=== PATIENT | female | born 1980 | race African-American/Black ===

== ENCOUNTER 2019-09-21 12:13 | Emergency (ER) | payer SELFPAY ==
[~2019-09-21] VITALS: Ht 170.2 cm; Wt 64.0 kg
[2019-09-21 12:31] VITALS: BP 142/88
== END 2019-09-21 12:33 | disposition home or self-care (01) ==
LOC: ER 12:13
DX: Z00.00 Encounter for general adult medical examination without abnormal findings (principal); R06.03 Acute respiratory distress; R53.1 Weakness
CPT/HCPCS: 99283

== ENCOUNTER 2019-09-22 00:52 | Emergency (ER) | payer SELFPAY ==
[~2019-09-22] VITALS: Ht 167.6 cm; Wt 59.0 kg
[2019-09-22 02:47] VITALS: BP 126/83
[2019-09-22] MEDS ORDERED: AZITHROMYCIN 500 MG TABLET PO ONE (03:00)
[2019-09-22] MEDS ORDERED: CEFTRIAXONE SODIUM 250 MG/VIAL IM ONE (03:00)
== END 2019-09-22 03:42 | disposition left against medical advice (07) ==
LOC: ER 00:55
DX: Z11.3 Encounter for screening for infections with a predominantly sexual mode of transmission (principal)
CPT/HCPCS: 99281

== ENCOUNTER 2019-09-24 01:22 | Emergency (ER) | payer SELFPAY ==
[~2019-09-24] VITALS: Ht 167.6 cm; Wt 59.0 kg
[2019-09-24 05:46] VITALS: BP 101/70
== END 2019-09-24 05:47 | disposition home or self-care (01) ==
LOC: ER 01:25
DX: J40 Bronchitis, not specified as acute or chronic (principal)
CPT/HCPCS: 81025; 99283

== ENCOUNTER 2019-09-25 08:35 | Emergency (ER) | payer SELFPAY ==
[~2019-09-25] VITALS: Ht 165.1 cm; Wt 50.0 kg
[2019-09-25 09:46] VITALS: BP 112/70
== END 2019-09-25 09:47 | disposition home or self-care (01) ==
LOC: ER 09:29
DX: Z20.828 Contact with and (suspected) exposure to other viral communicable diseases (principal); R05 Cough; K64.4 Residual hemorrhoidal skin tags; R03.0 Elevated blood-pressure reading, without diagnosis of hypertension
CPT/HCPCS: 99283; U0003

== ENCOUNTER 2019-09-26 06:27 | Emergency (ER) | payer SELFPAY ==
[~2019-09-26] VITALS: Ht 167.6 cm; Wt 61.0 kg
[2019-09-26] MEDS ORDERED: SODIUM CHLORIDE 0.9% 1,000 ML IV ONE (06:53)
[2019-09-26] MEDS ORDERED: FAMOTIDINE 20MG/2ML VIAL IV ONE (07:00)
[2019-09-26 07:23] LABS: BASOPHILS % 0.7 % (0.0-2.0); EOSINOPHILS % 0.7 % (0.0-5.0); HEMATOCRIT. 37.9 % (36.0-48.0); MEAN CORPUSCULAR HEMOGLOBIN 32.7 pg (28.0-32.0); MEAN CORPUSCULAR VOLUME 95.4 fL (81.0-99.0); MEAN PLATELET VOLUME 8.2 fl (7.4-10.4); NEUTROPHILS % 59.6 % (40.0-76.0); PLATELET 323 x1000/uL (130-400); RED BLOOD CELL COUNT 3.97 mill/uL (4.2-5.4)
[2019-09-26 07:29] LABS: CHLORIDE 102 mEq/L (98-107)
[2019-09-26 07:33] LABS: ETHANOL BLOOD < 10 mg/dL
[2019-09-26 07:37] LABS: CLARITY URINE CLEAR (CLEAR); COLOR URINE YELLOW (YELLOW); KETONES URINE 1+ (NEGATIVE); LEUKOCYTE ESTERASE URINE TRACE (NEGATIVE); NITRITE URINE NEGATIVE (NEGATIVE); OCCULT BLOOD URINE NEGATIVE (NEGATIVE); PH URINE 5.5 (4.5-8.0); PROTEIN URINE NEGATIVE (NEGATIVE); SPECIFIC GRAVITY URINE 1.029 (1.005-1.030)
[2019-09-26 07:39] LABS: HCG SCREEN NEGATIVE
[2019-09-26 08:02] LABS: METHADONE URINE SCREEN NEGATIVE (NEGATIVE); OPIATES URINE SCREEN NEGATIVE (NEGATIVE)
[2019-09-26 08:03] LABS: *AMPHETAMINES SCREEN URINE NEGATIVE (NEGATIVE); *BARBITURATES SCREEN URINE NEGATIVE (NEGATIVE); *BENZODIAZEPINES SCREEN URINE NEGATIVE (NEGATIVE); *COCAINE SCREEN URINE NEGATIVE (NEGATIVE); PHENCYCLIDINE URINE SCREEN NEGATIVE (NEGATIVE)
[2019-09-26 08:10] LABS: CANNABINOID URINE SCREEN PRESUMTIVE POSITIVE (NEGATIVE)
[2019-09-26 08:21] VITALS: BP 119/76
== END 2019-09-26 08:24 | disposition home or self-care (01) ==
LOC: ER 06:27
DX: R10.13 Epigastric pain (principal); N39.0 Urinary tract infection, site not specified; Z88.0 Allergy status to penicillin; Z88.6 Allergy status to analgesic agent; Z88.8 Allergy status to other drugs, medicaments and biological substances; Z88.4 Allergy status to anesthetic agent; Z79.899 Other long term (current) drug therapy
CPT/HCPCS: 36415; 71045; 80053; 80305; 80320; 81003; 83690; 83735; 84484; 84703; 85025; 93005; 96374; 99285; J3490; J7030; G0480

== ENCOUNTER 2019-09-29 12:08 | Emergency (ER) | payer OTHER ==
[~2019-09-29] VITALS: Ht 167.6 cm; Wt 55.0 kg
[2019-09-29 12:17] VITALS: BP 101/64
== END 2019-09-29 15:39 | disposition left against medical advice (07) ==
LOC: ER 12:08
DX: Z53.21 Procedure and treatment not carried out due to patient leaving prior to being seen by health care provider (principal)

== ENCOUNTER 2019-09-30 09:31 | Emergency (ER) | payer OTHER ==
[~2019-09-30] VITALS: Ht 172.7 cm; Wt 46.0 kg
[2019-09-30 10:00] VITALS: BP 117/78
== END 2019-09-30 11:06 | disposition home or self-care (01) ==
LOC: ER 09:31
DX: R63.1 Polydipsia (principal)
CPT/HCPCS: 99281

== ENCOUNTER 2019-10-01 13:55 | Emergency (ER) | payer OTHER ==
[2019-10-01 14:34] VITALS: BP 134/87
[2019-10-01 18:45] LABS: CLARITY URINE CLEAR (CLEAR); COLOR URINE DARK YELLOW (YELLOW); KETONES URINE 1+ (NEGATIVE); LEUKOCYTE ESTERASE URINE TRACE (NEGATIVE); NITRITE URINE NEGATIVE (NEGATIVE); OCCULT BLOOD URINE NEGATIVE (NEGATIVE); PH URINE 5.5 (4.5-8.0); PROTEIN URINE 1+ (NEGATIVE); SPECIFIC GRAVITY URINE 1.034 (1.005-1.030)
[2019-10-01 19:01] LABS: *AMPHETAMINES SCREEN URINE NEGATIVE (NEGATIVE); *BARBITURATES SCREEN URINE NEGATIVE (NEGATIVE); *BENZODIAZEPINES SCREEN URINE NEGATIVE (NEGATIVE); *COCAINE SCREEN URINE NEGATIVE (NEGATIVE); METHADONE URINE SCREEN NEGATIVE (NEGATIVE); OPIATES URINE SCREEN NEGATIVE (NEGATIVE)
[2019-10-01 19:02] LABS: PHENCYCLIDINE URINE SCREEN NEGATIVE (NEGATIVE)
[2019-10-01 19:19] LABS: CANNABINOID URINE SCREEN PRESUMTIVE POSITIVE (NEGATIVE)
[2019-10-02] MEDS ORDERED: AZIT500T8 PO (12:26)
== END 2019-10-01 20:02 | disposition home or self-care (01) ==
LOC: ER 13:55
DX: N30.00 Acute cystitis without hematuria (principal); J02.9 Acute pharyngitis, unspecified; R00.2 Palpitations; R51 Headache
CPT/HCPCS: 71045; 80305; 81003; 81025; 87070; 87430; 93005; 99285

== ENCOUNTER 2019-10-02 12:13 | Emergency (ER) | payer OTHER ==
[~2019-10-02] VITALS: Ht 170.2 cm; Wt 55.0 kg
[2019-10-02] MEDS ORDERED: AZIT500T8 PO (12:26)
[2019-10-02 13:45] VITALS: BP 126/82
== END 2019-10-02 14:05 | disposition home or self-care (01) ==
LOC: ER 12:13
DX: J06.9 Acute upper respiratory infection, unspecified (principal); Z87.440 Personal history of urinary (tract) infections
CPT/HCPCS: 99282

== ENCOUNTER 2019-10-04 20:20 | Emergency (ER) | payer OTHER ==
[~2019-10-04] VITALS: Ht 170.2 cm; Wt 57.0 kg
[~2019-10-04 20:20] MED LIST: AZIT500T8 PO
[2019-10-04 20:24] VITALS: BP 122/86
[2019-10-04] MEDS ORDERED: AZITHROMYCIN 500 MG TABLET PO ONE (22:00)
[2019-10-04] MEDS ORDERED: METRONIDAZOLE 500MG TABLET PO ONE (22:00)
== END 2019-10-04 23:18 | disposition home or self-care (01) ==
LOC: ER 20:20
DX: Z20.2 Contact with and (suspected) exposure to infections with a predominantly sexual mode of transmission (principal)
CPT/HCPCS: 81025; 99283

== ENCOUNTER 2019-10-06 11:06 | Emergency (ER) | payer OTHER ==
[~2019-10-06] VITALS: Ht 165.1 cm; Wt 55.0 kg
[2019-10-06 11:32] VITALS: BP 120/82
== END 2019-10-06 12:38 | disposition home or self-care (01) ==
LOC: ER 11:06
DX: B85.1 Pediculosis due to Pediculus humanus corporis (principal); Z59.0 Homelessness
CPT/HCPCS: 99282

== ENCOUNTER 2019-10-11 18:00 | Emergency (ER) | payer SELFPAY ==
[~2019-10-11] VITALS: Ht 170.2 cm; Wt 58.0 kg
[2019-10-11 20:19] LABS: CLARITY URINE CLEAR (CLEAR); COLOR URINE YELLOW (YELLOW); KETONES URINE NEGATIVE (NEGATIVE); LEUKOCYTE ESTERASE URINE NEGATIVE (NEGATIVE); NITRITE URINE NEGATIVE (NEGATIVE); OCCULT BLOOD URINE NEGATIVE (NEGATIVE); PH URINE 7.5 (4.5-8.0); PROTEIN URINE NEGATIVE (NEGATIVE); SPECIFIC GRAVITY URINE 1.006 (1.005-1.030); UROBILINOGEN URINE 0.2 E.U./dL (0.2-1.0)
[2019-10-11 21:26] LABS: BASOPHILS % 0.6 % (0.0-2.0); EOSINOPHILS % 1.1 % (0.0-5.0); HEMOGLOBIN. 11.8 g/dL (12.0-16.0); LYMPHOCYTES % 47.2 % (20.0-50.0); MEAN CORPUSCULAR HEMOGLOBIN 32.7 pg (28.0-32.0); MEAN CORPUSCULAR VOLUME 97.1 fL (81.0-99.0); MEAN PLATELET VOLUME 8.7 fl (7.4-10.4); MONOCYTES % 7.2 % (2.0-8.0); NEUTROPHILS % 43.9 % (40.0-76.0); PLATELET 272 x1000/uL (130-400); RED BLOOD CELL COUNT 3.61 mill/uL (4.2-5.4); RED CELL DISTRIBUTION WIDTH 14.8 % (11.6-14.6)
[2019-10-11 21:31] LABS: CHLORIDE 104 mEq/L (98-107)
[2019-10-12 17:30] VITALS: BP 110/58
== END 2019-10-13 02:51 | disposition home or self-care (01) ==
LOC: ER 18:20
DX: R07.89 Other chest pain (principal); Z20.828 Contact with and (suspected) exposure to other viral communicable diseases; Z88.0 Allergy status to penicillin; Z88.6 Allergy status to analgesic agent; Z88.8 Allergy status to other drugs, medicaments and biological substances; Z88.4 Allergy status to anesthetic agent; Z79.899 Other long term (current) drug therapy; Z59.0 Homelessness
CPT/HCPCS: 36415; 71045; 80053; 81003; 81025; 85025; 99285; C9803; U0003

== ENCOUNTER 2019-10-13 03:29 | Emergency (ER) | payer SELFPAY ==
[~2019-10-13] VITALS: Ht 167.6 cm; Wt 58.6 kg
[2019-10-13 03:51] VITALS: BP 112/52
[2019-10-13 07:01] LABS: CLARITY URINE CLEAR (CLEAR); COLOR URINE YELLOW (YELLOW); KETONES URINE NEGATIVE (NEGATIVE); LEUKOCYTE ESTERASE URINE 1+ (NEGATIVE); NITRITE URINE NEGATIVE (NEGATIVE); OCCULT BLOOD URINE NEGATIVE (NEGATIVE); PROTEIN URINE NEGATIVE (NEGATIVE); SPECIFIC GRAVITY URINE 1.022 (1.005-1.030); UROBILINOGEN URINE 0.2 E.U./dL (0.2-1.0)
== END 2019-10-13 07:30 | disposition left against medical advice (07) ==
LOC: ER 03:36
DX: N30.00 Acute cystitis without hematuria (principal); R03.0 Elevated blood-pressure reading, without diagnosis of hypertension
CPT/HCPCS: 81003; 81025; 99283

== ENCOUNTER 2019-11-02 19:40 | Emergency (ER) | payer SELFPAY ==
[~2019-11-02] VITALS: Ht 167.6 cm; Wt 59.0 kg
[2019-11-02] MEDS ORDERED: MAGNESIUM/ALUMINUM HYDROXIDE/SIMETHICONE 30ML UDC PO ONE (21:45)
[2019-11-02] MEDS ORDERED: ASPIRIN 81MG TABLET PO ONE (21:45)
[2019-11-02 22:36] LABS: HEMATOCRIT. 36.1 % (36.0-48.0); MEAN CORPUSCULAR HEMOGLOBIN 31.8 pg (28.0-32.0); MEAN CORPUSCULAR VOLUME 95.8 fL (81.0-99.0); MEAN PLATELET VOLUME 8.4 fl (7.4-10.4); PLATELET 333 x1000/uL (130-400); RED BLOOD CELL COUNT 3.77 mill/uL (4.2-5.4)
[2019-11-02 22:41] LABS: CHLORIDE 111 mEq/L (98-107)
[2019-11-02 23:59] LABS: ATYPICAL LYMPHOCYTES 1; PLATELET ESTIMATE NORMAL
[2019-11-03 00:25] LABS: *AMPHETAMINES SCREEN URINE NEGATIVE (NEGATIVE); OPIATES URINE SCREEN NEGATIVE (NEGATIVE); PHENCYCLIDINE URINE SCREEN NEGATIVE (NEGATIVE)
[2019-11-03 00:27] LABS: *BARBITURATES SCREEN URINE NEGATIVE (NEGATIVE); *BENZODIAZEPINES SCREEN URINE NEGATIVE (NEGATIVE); *COCAINE SCREEN URINE NEGATIVE (NEGATIVE); METHADONE URINE SCREEN NEGATIVE (NEGATIVE)
[2019-11-03 00:34] LABS: CANNABINOID URINE SCREEN PRESUMTIVE POSITIVE (NEGATIVE)
[2019-11-03 04:20] VITALS: BP 114/70
== END 2019-11-03 04:21 | disposition home or self-care (01) ==
LOC: ER 19:40
DX: R07.89 Other chest pain (principal); N39.0 Urinary tract infection, site not specified; Z98.890 Other specified postprocedural states; Z88.6 Allergy status to analgesic agent; Z88.0 Allergy status to penicillin
CPT/HCPCS: 36415; 71045; 80053; 80305; 81025; 83880; 84484; 85025; 93005; 99285

== ENCOUNTER 2019-11-19 14:56 | Emergency (ER) | payer OTHER ==
[~2019-11-19] VITALS: Ht 162.6 cm; Wt 54.0 kg
[2019-11-19 17:05] LABS: CLARITY URINE CLEAR (CLEAR); COLOR URINE YELLOW (YELLOW); KETONES URINE TRACE (NEGATIVE); LEUKOCYTE ESTERASE URINE NEGATIVE (NEGATIVE); NITRITE URINE NEGATIVE (NEGATIVE); OCCULT BLOOD URINE NEGATIVE (NEGATIVE); PH URINE 5.5 (4.5-8.0); PROTEIN URINE TRACE (NEGATIVE); SPECIFIC GRAVITY URINE 1.032 (1.005-1.030)
[2019-11-19 17:10] VITALS: BP 116/82
[2019-11-19] MEDS ORDERED: CEFTRIAXONE SODIUM 250 MG/VIAL IM ONE (17:30)
[2019-11-19] MEDS ORDERED: AZITHROMYCIN 500 MG TABLET PO ONE (17:30)
[2019-11-19 19:51] LABS: *AMPHETAMINES SCREEN URINE NEGATIVE (NEGATIVE); *BARBITURATES SCREEN URINE NEGATIVE (NEGATIVE); *BENZODIAZEPINES SCREEN URINE NEGATIVE (NEGATIVE); *COCAINE SCREEN URINE NEGATIVE (NEGATIVE)
[2019-11-19 19:52] LABS: METHADONE URINE SCREEN NEGATIVE (NEGATIVE); OPIATES URINE SCREEN NEGATIVE (NEGATIVE); PHENCYCLIDINE URINE SCREEN NEGATIVE (NEGATIVE)
[2019-11-19 19:55] LABS: CANNABINOID URINE SCREEN PRESUMTIVE POSITIVE (NEGATIVE)
[2019-11-22 06:07] LABS: NEISSERIA GONORRHOEAE NAA Negative (Negative)
== END 2019-11-19 19:36 | disposition home or self-care (01) ==
LOC: ER 14:56
DX: Z20.2 Contact with and (suspected) exposure to infections with a predominantly sexual mode of transmission (principal); Z20.818 Contact with and (suspected) exposure to other bacterial communicable diseases; Z72.51 High risk heterosexual behavior; F14.10 Cocaine abuse, uncomplicated
CPT/HCPCS: 80305; 81003; 81025; 87491; 87591; 99283; C9803; J0696; U0003

== ENCOUNTER 2019-11-23 14:06 | Emergency (ER) | payer OTHER ==
[~2019-11-23] VITALS: Ht 170.2 cm; Wt 76.0 kg
[2019-11-23 14:17] VITALS: BP 118/73
== END 2019-11-23 16:23 | disposition left against medical advice (07) ==
LOC: ER 14:06
DX: N89.8 Other specified noninflammatory disorders of vagina (principal); Z53.21 Procedure and treatment not carried out due to patient leaving prior to being seen by health care provider

== ENCOUNTER 2019-11-23 21:45 | Emergency (ER) | payer OTHER ==
[~2019-11-23] VITALS: Ht 167.6 cm; Wt 61.0 kg
[2019-11-23 21:54] VITALS: BP 128/78
== END 2019-11-23 22:45 | disposition left against medical advice (07) ==
LOC: ER 21:45
DX: N89.8 Other specified noninflammatory disorders of vagina (principal); Z88.0 Allergy status to penicillin; Z88.6 Allergy status to analgesic agent; Z88.8 Allergy status to other drugs, medicaments and biological substances; Z88.1 Allergy status to other antibiotic agents; Z98.890 Other specified postprocedural states
CPT/HCPCS: 99281

== ENCOUNTER 2020-03-14 09:06 | Emergency (ER) | payer SELFPAY ==
[~2020-03-14] VITALS: Ht 167.6 cm; Wt 62.0 kg
[2020-03-14 09:12] VITALS: BP 138/78
== END 2020-03-14 09:30 | disposition home or self-care (01) ==
LOC: ER 09:19
DX: B85.0 Pediculosis due to Pediculus humanus capitis (principal); B85.1 Pediculosis due to Pediculus humanus corporis; Z88.0 Allergy status to penicillin; Z88.6 Allergy status to analgesic agent; Z88.4 Allergy status to anesthetic agent
CPT/HCPCS: 99283

== ENCOUNTER 2020-03-15 06:18 | Emergency (ER) | payer OTHER ==
[~2020-03-15] VITALS: Ht 170.2 cm; Wt 61.0 kg
[2020-03-15 08:09] VITALS: BP 126/61
== END 2020-03-15 08:10 | disposition home or self-care (01) ==
LOC: ER 06:18
DX: B85.1 Pediculosis due to Pediculus humanus corporis (principal); R30.0 Dysuria; R03.0 Elevated blood-pressure reading, without diagnosis of hypertension
CPT/HCPCS: 99282

== ENCOUNTER 2020-03-18 17:51 | Emergency (ER) | payer OTHER ==
[~2020-03-18] VITALS: Ht 170.2 cm; Wt 58.9 kg
[2020-03-18 19:23] VITALS: BP 120/78
== END 2020-03-18 19:23 | disposition home or self-care (01) ==
LOC: ER 17:51
DX: Z20.828 Contact with and (suspected) exposure to other viral communicable diseases (principal)
CPT/HCPCS: 81025; 87635; 99283; C9803

== ENCOUNTER 2020-03-29 12:37 | Emergency (ER) | payer OTHER ==
[~2020-03-29] VITALS: Ht 170.2 cm; Wt 66.0 kg
[2020-03-29 12:44] VITALS: BP 94/58
[2020-03-29 14:16] LABS: CLARITY URINE CLEAR (CLEAR); COLOR URINE YELLOW (YELLOW); KETONES URINE NEGATIVE (NEGATIVE); LEUKOCYTE ESTERASE URINE NEGATIVE (NEGATIVE); NITRITE URINE NEGATIVE (NEGATIVE); OCCULT BLOOD URINE NEGATIVE (NEGATIVE); PROTEIN URINE NEGATIVE (NEGATIVE); SPECIFIC GRAVITY URINE 1.015 (1.005-1.030)
== END 2020-03-29 15:00 | disposition home or self-care (01) ==
LOC: ER 12:45
DX: N89.8 Other specified noninflammatory disorders of vagina (principal); R30.0 Dysuria; L29.9 Pruritus, unspecified; Z88.0 Allergy status to penicillin; Z88.6 Allergy status to analgesic agent; Z88.8 Allergy status to other drugs, medicaments and biological substances
CPT/HCPCS: 81003; 81025; 93005; 99284

== ENCOUNTER 2020-03-31 12:50 | Emergency (ER) | payer MEDICAID, OTHER ==
[~2020-03-31] VITALS: Ht 170.2 cm; Wt 60.0 kg
[2020-03-31 13:17] VITALS: BP 124/90
[2020-03-31 23:45] LABS: CLARITY URINE CLEAR (CLEAR); COLOR URINE YELLOW (YELLOW); KETONES URINE 1+ (NEGATIVE); LEUKOCYTE ESTERASE URINE 1+ (NEGATIVE); NITRITE URINE NEGATIVE (NEGATIVE); OCCULT BLOOD URINE NEGATIVE (NEGATIVE); PROTEIN URINE NEGATIVE (NEGATIVE); SPECIFIC GRAVITY URINE 1.024 (1.005-1.030)
[2020-04-01] MEDS ORDERED: CEFTRIAXONE SODIUM 250 MG/VIAL IM ONE (01:15)
[2020-04-01] MEDS ORDERED: AZITHROMYCIN 500 MG TABLET PO ONE (01:15)
[2020-04-07 05:09] LABS: NEISSERIA GONORRHOEAE NAA Negative (Negative)
== END 2020-04-01 02:20 | disposition home or self-care (01) ==
LOC: ER 12:50
DX: N89.8 Other specified noninflammatory disorders of vagina (principal); J02.9 Acute pharyngitis, unspecified
CPT/HCPCS: 71045; 81003; 81025; 87210; 87491; 87591; 96372; 99284; J0696

== ENCOUNTER 2020-04-02 06:30 | Emergency (ER) | payer MEDICAID ==
[~2020-04-02] VITALS: Ht 170.2 cm; Wt 58.0 kg
[2020-04-02 06:38] VITALS: BP 116/65
== END 2020-04-02 08:27 | disposition home or self-care (01) ==
LOC: ER 06:30
DX: B86 Scabies (principal); F17.200 Nicotine dependence, unspecified, uncomplicated; Z76.0 Encounter for issue of repeat prescription; Z88.0 Allergy status to penicillin; Z88.6 Allergy status to analgesic agent; Z88.8 Allergy status to other drugs, medicaments and biological substances
CPT/HCPCS: 99282

== ENCOUNTER 2020-04-02 17:12 | Emergency (ER) | payer MEDICAID ==
[~2020-04-02] VITALS: Ht 170.2 cm; Wt 58.0 kg
[2020-04-02 20:00] LABS: CHLORIDE 105 mEq/L (98-107)
[2020-04-02 20:09] LABS: BASOPHILS % 0.5 % (0.0-2.0); EOSINOPHILS % 1.1 % (0.0-5.0); HEMATOCRIT. 33.3 % (36.0-48.0); HEMOGLOBIN. 11.8 g/dL (12.0-16.0); LYMPHOCYTES % 53.2 % (20.0-50.0); MEAN CORPUSCULAR HEMOGLOBIN 34.6 pg (28.0-32.0); MEAN CORPUSCULAR VOLUME 97.6 fL (81.0-99.0); MEAN PLATELET VOLUME 8.4 fl (7.4-10.4); MONOCYTES % 4.9 % (2.0-8.0); NEUTROPHILS % 40.3 % (40.0-76.0); PLATELET 241 x1000/uL (130-400); RED BLOOD CELL COUNT 3.42 mill/uL (4.2-5.4); RED CELL DISTRIBUTION WIDTH 14.5 % (11.6-14.6)
[2020-04-02 20:50] LABS: CLARITY URINE CLEAR (CLEAR); COLOR URINE YELLOW (YELLOW); KETONES URINE TRACE (NEGATIVE); LEUKOCYTE ESTERASE URINE NEGATIVE (NEGATIVE); NITRITE URINE NEGATIVE (NEGATIVE); OCCULT BLOOD URINE NEGATIVE (NEGATIVE); PROTEIN URINE NEGATIVE (NEGATIVE); SPECIFIC GRAVITY URINE 1.029 (1.005-1.030); UROBILINOGEN URINE 0.2 E.U./dL (0.2-1.0)
[2020-04-02 22:04] VITALS: BP 112/73
== END 2020-04-02 22:38 | disposition home or self-care (01) ==
LOC: ER 17:20
DX: R10.10 Upper abdominal pain, unspecified (principal); Z88.0 Allergy status to penicillin; Z88.8 Allergy status to other drugs, medicaments and biological substances; Z88.6 Allergy status to analgesic agent
CPT/HCPCS: 36415; 80053; 81003; 81025; 84484; 85025; 99283

== ENCOUNTER 2020-04-03 03:42 | Emergency (ER) | payer MEDICAID ==
[~2020-04-03] VITALS: Ht 170.2 cm; Wt 57.0 kg
[2020-04-03 05:14] VITALS: BP 127/74
[2020-04-03 06:09] LABS: HEPATITIS B SURFACE ANTIGEN NEGATIVE
[2020-04-03 06:39] LABS: HEPATITIS A AB IGM NEGATIVE (NEGATIVE)
[2020-04-06 04:07] LABS: HIV SCREEN 4G Non Reactive (Non Reactive)
== END 2020-04-03 05:18 | disposition home or self-care (01) ==
LOC: ER 03:52
DX: U07.1 COVID-19 (principal); H53.8 Other visual disturbances; Z59.0 Homelessness
CPT/HCPCS: 36415; 86705; 86709; 86803; 87340; 87389; 99283; C9803; U0003

== ENCOUNTER 2020-04-04 11:42 | Emergency (ER) | payer MEDICAID ==
[~2020-04-04] VITALS: Ht 165.1 cm; Wt 65.0 kg
[2020-04-04 12:54] VITALS: BP 128/95
== END 2020-04-04 13:00 | disposition home or self-care (01) ==
LOC: ER 11:46
DX: J02.9 Acute pharyngitis, unspecified (principal); Z88.0 Allergy status to penicillin; Z88.6 Allergy status to analgesic agent
CPT/HCPCS: 99281

== ENCOUNTER 2020-04-05 20:00 | Emergency (ER) | payer MEDICAID ==
[~2020-04-05] VITALS: Ht 170.2 cm; Wt 61.0 kg
[2020-04-05 20:04] VITALS: BP 109/68
== END 2020-04-05 21:00 | disposition home or self-care (01) ==
LOC: ER 20:00
DX: R10.84 Generalized abdominal pain (principal); R03.0 Elevated blood-pressure reading, without diagnosis of hypertension; U07.1 COVID-19; T39.1X5A Adverse effect of 4-Aminophenol derivatives, initial encounter; Y92.89 Other specified places as the place of occurrence of the external cause
CPT/HCPCS: 99281

== ENCOUNTER 2020-04-06 11:44 | Emergency (ER) | payer MEDICAID ==
[~2020-04-06] VITALS: Ht 167.6 cm; Wt 80.0 kg
[2020-04-06 11:53] VITALS: BP 104/68
== END 2020-04-06 13:02 | disposition home or self-care (01) ==
LOC: ER 11:44
DX: U07.1 COVID-19 (principal); Z88.0 Allergy status to penicillin; Z88.6 Allergy status to analgesic agent; Z88.8 Allergy status to other drugs, medicaments and biological substances; Z79.82 Long term (current) use of aspirin; Z88.1 Allergy status to other antibiotic agents
CPT/HCPCS: 99281; 99283

== ENCOUNTER 2020-04-06 16:47 | Emergency (ER) | payer MEDICAID | END 2020-04-06 17:00 | disposition left against medical advice (07) | LOC: ER 16:47 | DX: Z53.21 Procedure and treatment not carried out due to patient leaving prior to being seen by health care provider (principal) ==

== ENCOUNTER 2020-07-22 08:04 | Emergency (ER) | payer MEDICAID ==
[~2020-07-22] VITALS: Ht 170.2 cm; Wt 64.0 kg
[2020-07-22] MEDS ORDERED: DOXYCYCLINE HYCLATE 100MG CAPSULE PO ONE (08:45)
[2020-07-22] MEDS ORDERED: CEFTRIAXONE SODIUM 250 MG/VIAL IM ONE (08:45)
[2020-07-22] MEDS ORDERED: FLUCONAZOLE 100MG TABLET PO ONE (09:00)
[2020-07-22] MEDS ORDERED: DOXY100T2 PO (09:02)
[2020-07-22 09:28] LABS: CLARITY URINE CLEAR (CLEAR); COLOR URINE YELLOW (YELLOW); KETONES URINE 1+ (NEGATIVE); LEUKOCYTE ESTERASE URINE TRACE (NEGATIVE); NITRITE URINE NEGATIVE (NEGATIVE); OCCULT BLOOD URINE NEGATIVE (NEGATIVE); PH URINE 5.5 (4.5-8.0); PROTEIN URINE NEGATIVE (NEGATIVE); SPECIFIC GRAVITY URINE 1.027 (1.005-1.030)
[2020-07-22] MEDS ORDERED: LIDOCAINE HCL 1% 20ML VIAL (Pyxis) INJ INFIL ONE (09:30)
[2020-07-22 10:00] VITALS: BP 110/80
[2020-07-25 06:07] LABS: NEISSERIA GONORRHOEAE NAA Negative (Negative)
== END 2020-07-22 10:10 | disposition home or self-care (01) ==
LOC: ER 08:04
DX: A64 Unspecified sexually transmitted disease (principal); Z88.0 Allergy status to penicillin; Z88.6 Allergy status to analgesic agent
CPT/HCPCS: 81003; 81025; 87210; 87491; 87591; 96372; 99283; J0696; J3490; Z7610

== ENCOUNTER 2021-03-18 07:52 | Emergency (ER) | payer MEDICAID ==
[~2021-03-18] VITALS: Ht 167.6 cm; Wt 63.0 kg
[~2021-03-18 07:52] MED LIST changes: +DOXY100T2 PO
[2021-03-18] MEDS ORDERED: LIDOCAINE HCL 1% 20ML VIAL (Pyxis) INJ INFIL ONE (08:30)
[2021-03-18] MEDS ORDERED: AZITHROMYCIN 500 MG TABLET PO ONE (08:30)
[2021-03-18] MEDS ORDERED: CEFTRIAXONE SODIUM 1 G/VIAL IM ONE ×2 (08:30→09:00)
[2021-03-18 08:38] LABS: CLARITY URINE CLOUDY (CLEAR); COLOR URINE YELLOW (YELLOW); KETONES URINE NEGATIVE (NEGATIVE); LEUKOCYTE ESTERASE URINE 1+ (NEGATIVE); NITRITE URINE NEGATIVE (NEGATIVE); OCCULT BLOOD URINE TRACE (NEGATIVE); PH URINE 5.5 (4.5-8.0); PROTEIN URINE TRACE (NEGATIVE); SPECIFIC GRAVITY URINE 1.027 (1.005-1.030); UROBILINOGEN URINE 0.2 E.U./dL (0.2-1.0)
[2021-03-18] MEDS ORDERED: SODIUM CHLORIDE 0.9% INJ 3ML FLUSH IVF ONE (09:00)
[2021-03-18] MEDS ORDERED: METR500T MT (09:29)
[2021-03-18] MEDS ORDERED: SULF1TAB48 MT (09:29)
[2021-03-18 09:43] VITALS: BP 122/78
[2021-03-22 04:07] LABS: NEISSERIA GONORRHOEAE NAA Negative (Negative)
== END 2021-03-18 09:45 | disposition home or self-care (01) ==
LOC: ER 07:52
DX: N39.0 Urinary tract infection, site not specified (principal); Z20.2 Contact with and (suspected) exposure to infections with a predominantly sexual mode of transmission; Z88.0 Allergy status to penicillin; Z88.6 Allergy status to analgesic agent; Z88.4 Allergy status to anesthetic agent; Z88.8 Allergy status to other drugs, medicaments and biological substances; Z79.899 Other long term (current) drug therapy
CPT/HCPCS: 81003; 87086; 87491; 87591; 96372; 99284; J0696; J3490

== ENCOUNTER 2021-03-27 13:29 | Emergency (ER) | payer MEDICAID ==
[~2021-03-27] VITALS: Ht 167.6 cm; Wt 61.4 kg
[~2021-03-27 13:29] MED LIST changes: +METR500T MT; +SULF1TAB48 MT
[2021-03-27 15:41] LABS: CLARITY URINE CLEAR (CLEAR); COLOR URINE DARK YELLOW (YELLOW); KETONES URINE 1+ (NEGATIVE); LEUKOCYTE ESTERASE URINE TRACE (NEGATIVE); NITRITE URINE NEGATIVE (NEGATIVE); OCCULT BLOOD URINE NEGATIVE (NEGATIVE); PH URINE 5.5 (4.5-8.0); PROTEIN URINE NEGATIVE (NEGATIVE); SPECIFIC GRAVITY URINE 1.019 (1.005-1.030); UROBILINOGEN URINE 0.2 E.U./dL (0.2-1.0)
[2021-03-27] MEDS ORDERED: NITR-87 MT (15:43)
[2021-03-27 15:51] VITALS: BP 133/70
== END 2021-03-27 15:50 | disposition home or self-care (01) ==
LOC: ER 13:34
DX: N39.0 Urinary tract infection, site not specified (principal); N89.8 Other specified noninflammatory disorders of vagina; Z87.01 Personal history of pneumonia (recurrent); Z98.890 Other specified postprocedural states; Z79.899 Other long term (current) drug therapy; Z88.0 Allergy status to penicillin
CPT/HCPCS: 81003; 81025; 99283

== ENCOUNTER 2021-03-28 11:21 | Emergency (ER) | payer MEDICAID ==
[~2021-03-28] VITALS: Ht 167.6 cm; Wt 59.0 kg
[~2021-03-28 11:21] MED LIST changes: +NITR-87 MT
[2021-03-28 11:58] VITALS: BP 114/67
[2021-03-28] MEDS ORDERED: TETANUS, DIPHTHERIA, PERTUSSIS VAC/PF 0.5ML (>10YR OLD) IM ONE (12:00)
== END 2021-03-28 13:50 | disposition home or self-care (01) ==
LOC: ER 11:21
DX: Z11.1 Encounter for screening for respiratory tuberculosis (principal); Z87.01 Personal history of pneumonia (recurrent); Z59.01 Sheltered homelessness; Z59.812 Housing instability, housed, homelessness in past 12 months; Z88.0 Allergy status to penicillin; Z88.6 Allergy status to analgesic agent; Z88.8 Allergy status to other drugs, medicaments and biological substances
CPT/HCPCS: 71045; 90471; 90715; 99283

== ENCOUNTER 2021-04-12 20:17 | Emergency (ER) | payer MEDICAID ==
[~2021-04-12] VITALS: Ht 167.6 cm; Wt 59.0 kg
[2021-04-12 21:37] VITALS: BP 130/96
[2021-04-12 22:46] LABS: CLARITY URINE CLEAR (CLEAR); COLOR URINE YELLOW (YELLOW); KETONES URINE TRACE (NEGATIVE); LEUKOCYTE ESTERASE URINE TRACE (NEGATIVE); NITRITE URINE NEGATIVE (NEGATIVE); OCCULT BLOOD URINE TRACE (NEGATIVE); PH URINE 5.5 (4.5-8.0); PROTEIN URINE NEGATIVE (NEGATIVE); SPECIFIC GRAVITY URINE 1.026 (1.005-1.030); UROBILINOGEN URINE 0.2 E.U./dL (0.2-1.0)
[2021-04-12] MEDS ORDERED: NITR-87 MT (23:19)
[2021-04-15 09:11] LABS: NEISSERIA GONORRHOEAE NAA Negative (Negative)
== END 2021-04-13 00:29 | disposition home or self-care (01) ==
LOC: ER 20:17
DX: N30.00 Acute cystitis without hematuria (principal); Z20.2 Contact with and (suspected) exposure to infections with a predominantly sexual mode of transmission; N89.8 Other specified noninflammatory disorders of vagina; Z98.890 Other specified postprocedural states; Z79.899 Other long term (current) drug therapy; Z88.8 Allergy status to other drugs, medicaments and biological substances; Z88.6 Allergy status to analgesic agent
CPT/HCPCS: 81003; 81025; 87491; 87591; 99283

== ENCOUNTER 2021-04-17 15:19 | Emergency (ER) | payer MEDICAID ==
[~2021-04-17] VITALS: Ht 167.6 cm; Wt 87.0 kg
[2021-04-17 15:43] VITALS: BP 126/96
== END 2021-04-17 20:34 | disposition left against medical advice (07) ==
LOC: ER 15:19
DX: Z53.21 Procedure and treatment not carried out due to patient leaving prior to being seen by health care provider (principal)

== ENCOUNTER 2021-04-20 06:05 | Emergency (ER) | payer MEDICAID ==
[~2021-04-20] VITALS: Ht 170.2 cm; Wt 62.0 kg
[2021-04-20 06:13] VITALS: BP 127/83
[2021-04-20 08:52] LABS: CLARITY URINE CLEAR (CLEAR); COLOR URINE YELLOW (YELLOW); KETONES URINE NEGATIVE (NEGATIVE); LEUKOCYTE ESTERASE URINE NEGATIVE (NEGATIVE); NITRITE URINE NEGATIVE (NEGATIVE); OCCULT BLOOD URINE NEGATIVE (NEGATIVE); PROTEIN URINE NEGATIVE (NEGATIVE); SPECIFIC GRAVITY URINE 1.024 (1.005-1.030)
[2021-04-20] MEDS ORDERED: DOXY100T28 MT (09:25)
[2021-04-20] MEDS ORDERED: CEFTRIAXONE SODIUM 500 MG/VIAL IM SCH (09:30)
[2021-04-20] MEDS ORDERED: LIDOCAINE HCL 1% 20ML VIAL (Pyxis) INJ INFIL SCH (09:30)
[2021-04-22 04:07] LABS: NEISSERIA GONORRHOEAE NAA Negative (Negative)
== END 2021-04-20 09:57 | disposition home or self-care (01) ==
LOC: ER 06:05
DX: Z20.2 Contact with and (suspected) exposure to infections with a predominantly sexual mode of transmission (principal); N89.8 Other specified noninflammatory disorders of vagina; R30.0 Dysuria
CPT/HCPCS: 81003; 81025; 87491; 87591; 96372; 99283; J0696; J3490

== ENCOUNTER 2021-04-27 02:45 | Emergency (ER) | payer MEDICAID ==
[~2021-04-27] VITALS: Ht 170.2 cm; Wt 59.0 kg
[~2021-04-27 02:45] MED LIST changes: +DOXY100T28 MT
[2021-04-27 06:47] LABS: BASOPHILS % 1.1 % (0.0-2.0); CHLORIDE 109 mEq/L (98-107); EOSINOPHILS % 0.9 % (0.0-5.0); HEMATOCRIT. 34.6 % (36.0-48.0); HEMOGLOBIN. 11.6 g/dL (12.0-16.0); LYMPHOCYTES % 42.3 % (20.0-50.0); MEAN CORPUSCULAR HEMOGLOBIN 32.5 pg (28.0-32.0); MEAN CORPUSCULAR VOLUME 96.9 fL (81.0-99.0); MONOCYTES % 8.2 % (2.0-8.0); NEUTROPHILS % 47.5 % (40.0-76.0); PLATELET 299 x1000/uL (130-400); RED BLOOD CELL COUNT 3.57 mill/uL (4.2-5.4); RED CELL DISTRIBUTION WIDTH 13.9 % (11.6-14.6)
[2021-04-27] MEDS ORDERED: TOPUD PO (08:26)
[2021-04-27 08:45] VITALS: BP 116/85
[2021-04-28] MEDS ORDERED: IMIT50 MT (22:02)
== END 2021-04-27 08:47 | disposition home or self-care (01) ==
LOC: ER 02:45
DX: R60.9 Edema, unspecified (principal); Z88.0 Allergy status to penicillin; Z88.6 Allergy status to analgesic agent; Z88.8 Allergy status to other drugs, medicaments and biological substances; Z98.890 Other specified postprocedural states; Z79.899 Other long term (current) drug therapy
CPT/HCPCS: 36415; 80053; 83880; 84484; 85025; 93005; 99284

== ENCOUNTER 2021-04-27 20:33 | Emergency (ER) | payer MEDICAID ==
[~2021-04-27] VITALS: Ht 170.2 cm; Wt 50.0 kg
[~2021-04-27 20:33] MED LIST changes: +TOPUD PO
[2021-04-27 21:00] VITALS: BP 109/74
[2021-04-28] MEDS ORDERED: IMIT50 MT (22:02)
== END 2021-04-27 23:38 | disposition home or self-care (01) ==
LOC: ER 20:33
DX: R07.89 Other chest pain (principal); Z88.0 Allergy status to penicillin; Z88.6 Allergy status to analgesic agent; Z88.8 Allergy status to other drugs, medicaments and biological substances; Z88.4 Allergy status to anesthetic agent; Z79.899 Other long term (current) drug therapy
CPT/HCPCS: 99281

== ENCOUNTER 2021-04-28 16:37 | Emergency (ER) | payer MEDICAID ==
[~2021-04-28] VITALS: Ht 167.6 cm; Wt 59.0 kg
[2021-04-28] MEDS ORDERED: HYDROCODONE/ACETAMINOPHEN 5/325MG TABLET PO ONE (21:45)
[2021-04-28] MEDS ORDERED: SUMATRIPTAN SUCCINATE 25MG TABLET PO ONE (21:45)
[2021-04-28] MEDS ORDERED: IMIT50 MT (22:02)
[2021-04-28 22:25] VITALS: BP 19/68
== END 2021-04-28 22:27 | disposition home or self-care (01) ==
LOC: ER 16:37
DX: G43.909 Migraine, unspecified, not intractable, without status migrainosus (principal); Z79.899 Other long term (current) drug therapy; Z88.0 Allergy status to penicillin
CPT/HCPCS: 71045; 99283

== ENCOUNTER 2021-05-01 12:57 | Emergency (ER) | payer MEDICAID ==
[~2021-05-01] VITALS: Ht 170.2 cm; Wt 66.0 kg
[~2021-05-01 12:57] MED LIST changes: +IMIT50 MT
[2021-05-01 13:43] VITALS: BP 119/60
== END 2021-05-01 16:37 | disposition home or self-care (01) ==
LOC: ER 12:57
DX: R10.2 Pelvic and perineal pain (principal)
CPT/HCPCS: 99281

== ENCOUNTER 2021-05-05 05:44 | Emergency (ER) | payer MEDICAID ==
[~2021-05-05] VITALS: Ht 167.6 cm; Wt 62.0 kg
[2021-05-05] MEDS ORDERED: IBUP-2028 PO (06:06)
[2021-05-05] MEDS ORDERED: IBUPROFEN 400MG TABLET PO ONE (06:15)
[2021-05-05 06:47] VITALS: BP 125/67
[2021-05-05] MEDS ORDERED: TERB30CR8 TP (08:20)
== END 2021-05-05 06:48 | disposition home or self-care (01) ==
LOC: ER 05:44
DX: H92.01 Otalgia, right ear (principal); J02.9 Acute pharyngitis, unspecified; Z88.0 Allergy status to penicillin; Z88.8 Allergy status to other drugs, medicaments and biological substances; Z88.6 Allergy status to analgesic agent
CPT/HCPCS: 99282

== ENCOUNTER 2021-05-09 00:26 | Emergency (ER) | payer MEDICAID ==
[~2021-05-09] VITALS: Ht 170.2 cm; Wt 65.0 kg
[~2021-05-09 00:26] MED LIST changes: +IBUP-2028 PO; +TERB30CR8 TP
[2021-05-09 00:36] VITALS: BP 129/87
== END 2021-05-09 01:13 | disposition left against medical advice (07) ==
LOC: ER 00:26
DX: Z53.21 Procedure and treatment not carried out due to patient leaving prior to being seen by health care provider (principal)

== ENCOUNTER 2021-05-10 17:22 | Emergency (ER) | payer MEDICAID ==
[~2021-05-10] VITALS: Ht 165.1 cm; Wt 75.0 kg
[2021-05-10 18:44] LABS: CLARITY URINE CLEAR (CLEAR); COLOR URINE YELLOW (YELLOW); KETONES URINE 2+ (NEGATIVE); LEUKOCYTE ESTERASE URINE TRACE (NEGATIVE); NITRITE URINE NEGATIVE (NEGATIVE); OCCULT BLOOD URINE NEGATIVE (NEGATIVE); PH URINE 5.5 (4.5-8.0); PROTEIN URINE NEGATIVE (NEGATIVE); UROBILINOGEN URINE 0.2 E.U./dL (0.2-1.0)
[2021-05-10 19:41] LABS: CHLORIDE 110 mEq/L (98-107)
[2021-05-10 21:35] VITALS: BP 112/72
== END 2021-05-10 21:45 | disposition home or self-care (01) ==
LOC: ER 17:22
DX: R10.10 Upper abdominal pain, unspecified (principal); Z88.0 Allergy status to penicillin; Z88.6 Allergy status to analgesic agent; Z88.8 Allergy status to other drugs, medicaments and biological substances; Z88.4 Allergy status to anesthetic agent; Z79.899 Other long term (current) drug therapy
CPT/HCPCS: 36415; 80053; 81003; 87210; 99283

== ENCOUNTER 2021-05-17 12:08 | Emergency (ER) | payer SELFPAY ==
[~2021-05-17] VITALS: Ht 167.6 cm; Wt 63.4 kg
[2021-05-17 12:13] VITALS: BP 131/84
[2021-05-17] MEDS ORDERED: HYDR453.3 TP (12:29)
[2021-05-17] MEDS ORDERED: PERM60CR4 TP (12:29)
[2021-05-17] MEDS ORDERED: CETI10TA6 PO (12:29)
== END 2021-05-17 12:55 | disposition home or self-care (01) ==
LOC: ER 12:08
DX: B86 Scabies (principal); Z88.0 Allergy status to penicillin; Z88.6 Allergy status to analgesic agent; Z88.4 Allergy status to anesthetic agent; Z88.8 Allergy status to other drugs, medicaments and biological substances; Z79.899 Other long term (current) drug therapy
CPT/HCPCS: 99283

== ENCOUNTER 2021-05-30 00:34 | Emergency (ER) | payer SELFPAY ==
[~2021-05-30] VITALS: Ht 167.6 cm; Wt 60.0 kg
[~2021-05-30 00:34] MED LIST changes: +CETI10TA6 PO; +HYDR453.3 TP; +PERM60CR4 TP
[2021-05-30 00:49] VITALS: BP 122/64
[2021-05-30] MEDS ORDERED: CEFTRIAXONE SODIUM 500 MG/VIAL IM ONE (03:00)
[2021-05-30] MEDS ORDERED: DOXYCYCLINE HYCLATE 100MG CAPSULE PO ONE (03:00)
[2021-05-30 03:18] LABS: CLARITY URINE CLEAR (CLEAR); COLOR URINE YELLOW (YELLOW); KETONES URINE TRACE (NEGATIVE); LEUKOCYTE ESTERASE URINE NEGATIVE (NEGATIVE); NITRITE URINE NEGATIVE (NEGATIVE); OCCULT BLOOD URINE NEGATIVE (NEGATIVE); PH URINE 6.5 (4.5-8.0); PROTEIN URINE 1+ (NEGATIVE); SPECIFIC GRAVITY URINE 1.031 (1.005-1.030)
[2021-05-30 03:52] LABS: HCG SCREEN NEGATIVE
[2021-05-30] MEDS ORDERED: DOXY-326 MT (04:26)
[2021-05-30 04:54] LABS: BASOPHILS % 0.6 % (0.0-2.0); EOSINOPHILS % 0.5 % (0.0-5.0); HEMATOCRIT. 34.3 % (36.0-48.0); HEMOGLOBIN. 11.2 g/dL (12.0-16.0); LYMPHOCYTES % 39.3 % (20.0-50.0); MEAN CORPUSCULAR HEMOGLOBIN 30.7 pg (28.0-32.0); MONOCYTES % 6.9 % (2.0-8.0); NEUTROPHILS % 52.7 % (40.0-76.0); PLATELET 298 x1000/uL (130-400); RED BLOOD CELL COUNT 3.65 mill/uL (4.2-5.4); RED CELL DISTRIBUTION WIDTH 14.4 % (11.6-14.6)
[2021-05-30 04:57] LABS: CHLORIDE 109 mEq/L (98-107)
[2021-05-31 08:08] LABS: HIV SCREEN 4G Non Reactive (Non Reactive)
== END 2021-05-30 06:11 | disposition home or self-care (01) ==
LOC: ER 00:34
DX: M25.512 Pain in left shoulder (principal); G89.11 Acute pain due to trauma; Y08.89XA Assault by other specified means, initial encounter; Y93.89 Activity, other specified; Y92.89 Other specified places as the place of occurrence of the external cause; Z20.2 Contact with and (suspected) exposure to infections with a predominantly sexual mode of transmission; Z88.0 Allergy status to penicillin; Z79.899 Other long term (current) drug therapy
CPT/HCPCS: 36415; 71045; 73030; 80053; 81003; 83880; 84484; 84703; 85025; 86592; 87389; 93005; 96372; 99285; J0696

== ENCOUNTER 2022-02-20 10:28 | Emergency (ER) | payer MEDICAID, OTHER ==
[~2022-02-20] VITALS: Ht 167.6 cm; Wt 94.0 kg
[~2022-02-20 10:28] MED LIST changes: +DOXY-326 MT
[2022-02-20 10:31] VITALS: BP 115/79
[2022-02-20 14:00] LABS: CLARITY URINE CLOUDY (CLEAR); COLOR URINE DARK YELLOW (YELLOW); KETONES URINE 1+ (NEGATIVE); LEUKOCYTE ESTERASE URINE TRACE (NEGATIVE); NITRITE URINE NEGATIVE (NEGATIVE); OCCULT BLOOD URINE NEGATIVE (NEGATIVE); PROTEIN URINE 1+ (NEGATIVE); SPECIFIC GRAVITY URINE 1.036 (1.005-1.030)
[2022-02-20] MEDS ORDERED: CEFTRIAXONE SODIUM 500 MG/VIAL IM ONE (14:30)
[2022-02-20] MEDS ORDERED: DOXYCYCLINE HYCLATE 100MG CAPSULE PO ONE (14:30)
[2022-02-20] MEDS ORDERED: DOXY100C5 MT (15:21)
[2022-02-23 07:12] LABS: NEISSERIA GONORRHOEAE NAA Negative (Negative)
== END 2022-02-20 16:10 | disposition home or self-care (01) ==
LOC: ER 10:28
DX: N76.0 Acute vaginitis (principal); Z88.0 Allergy status to penicillin
CPT/HCPCS: 81003; 87210; 87491; 87591; 96372; 99283; J0696

== ENCOUNTER 2022-02-22 16:17 | Emergency (ER) | payer MEDICAID ==
[~2022-02-22 16:17] MED LIST changes: +DOXY100C5 MT
== END 2022-02-22 19:00 | disposition left against medical advice (07) ==
LOC: ER 16:23
DX: Z53.21 Procedure and treatment not carried out due to patient leaving prior to being seen by health care provider (principal)

== ENCOUNTER 2022-03-03 17:00 | Emergency (ER) | payer MEDICAID ==
[~2022-03-03] VITALS: Ht 167.6 cm; Wt 61.0 kg
[2022-03-03 17:09] VITALS: BP 144/82
[2022-03-04] MEDS ORDERED: METH-653 MT (11:49)
== END 2022-03-03 21:00 | disposition left against medical advice (07) ==
LOC: ER 17:00
DX: Z53.21 Procedure and treatment not carried out due to patient leaving prior to being seen by health care provider (principal)

== ENCOUNTER 2022-03-04 07:51 | Emergency (ER) | payer MEDICAID ==
[~2022-03-04] VITALS: Ht 167.6 cm; Wt 61.0 kg
[2022-03-04 08:04] VITALS: BP 134/89
[2022-03-04] MEDS ORDERED: METHOCARBAMOL 750MG TABLET PO SCH (10:00)
[2022-03-04 11:23] LABS: CLARITY URINE CLEAR (CLEAR); COLOR URINE YELLOW (YELLOW); KETONES URINE TRACE (NEGATIVE); LEUKOCYTE ESTERASE URINE TRACE (NEGATIVE); NITRITE URINE NEGATIVE (NEGATIVE); OCCULT BLOOD URINE NEGATIVE (NEGATIVE); PROTEIN URINE TRACE (NEGATIVE); SPECIFIC GRAVITY URINE 1.028 (1.005-1.030)
[2022-03-04] MEDS ORDERED: METH-653 MT (11:49)
== END 2022-03-04 12:28 | disposition home or self-care (01) ==
LOC: ER 07:51
DX: M54.2 Cervicalgia (principal); M54.89 Other dorsalgia; V49.59XA Passenger injured in collision with other motor vehicles in traffic accident, initial encounter; Y93.89 Activity, other specified; Y92.488 Other paved roadways as the place of occurrence of the external cause
CPT/HCPCS: 81003; 81025; 99283